=== PATIENT | female | born 1990 | race African-American/Black ===

== ENCOUNTER 2020-03-24 21:24 | Emergency (ER) | payer SELFPAY ==
[~2020-03-24] VITALS: Ht 165.1 cm; Wt 61.2 kg
[2020-03-24 22:42] VITALS: Ht 165.1 cm; Wt 61.2 kg
[2020-03-24 23:57] LABS: ALBUMIN 3.9 g/dL (3.4-5.0); ALKALINE PHOSPHATASE 47 U/L (46-116); ALT/SGPT 29 U/L (14-59); AST/SGOT 50 U/L (15-37); BILIRUBIN TOTAL 0.8 mg/dL (0.20-1.00); CALCIUM 8.3 mg/dL (8.5-10.1); CARBON DIOXIDE 30.4 mmol/L (21-32); CHLORIDE SERUM 102 mmol/L (98-107); CREATININE SERUM 0.8 mg/dL (0.6-1.0); GFR1 > 60 mL/min; GLUCOSE SERUM 87 mg/dL (74-106); SODIUM SERUM 141 mmol/L (136-145); TOTAL PROTEIN, SERUM 7.4 g/dL (6.4-8.2)
[2020-03-25 00:01] LABS: BASOPHIL % 0.2 % (0-2); PLATELET COUNT 274 x10^3mcL (130-400); POTASSIUM SERUM 2.9 mmol/L (3.5-5.1); RED CELL DISTRIBUTION WIDTH 14.7 % (11.5-14.5)
[2020-03-25 00:53] LABS: AMPHETAMINE QUAL UR NONE DETECTED (See below)
[2020-03-25 05:39] VITALS: BP 110/81
== END 2020-03-25 05:39 | disposition home or self-care (01) ==
LOC: ED 21:24
PROVIDERS: Emergency Medicine
DX: F20.9 Schizophrenia, unspecified (principal); E87.6 Hypokalemia
CPT/HCPCS: G0480; J3480